=== PATIENT | male | born 2005 | race Caucasian/White ===

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

== ENCOUNTER 2023-05-12 15:56 | Emergency (ER) | payer OTHER ==
[~2023-05-12] VITALS: Ht 180.3 cm; Wt 72.6 kg
[2023-05-12] MEDS ORDERED: CEPH500 PO (18:23)
[2023-05-12 18:39] VITALS: BP 124/84
== END 2023-05-12 18:39 | disposition home or self-care (01) ==
LOC: ER 15:56
DX: S61.211A Laceration without foreign body of left index finger without damage to nail, initial encounter (principal); Z23 Encounter for immunization; W23.0XXA Caught, crushed, jammed, or pinched between moving objects, initial encounter; Z79.899 Other long term (current) drug therapy; J45.909 Unspecified asthma, uncomplicated
CPT/HCPCS: 12001; 73140; 90471; 90702; 90715; 99283-25; A9270